=== PATIENT | female | born 1945 | race Caucasian/White ===

== ENCOUNTER → 2021-04-03 | Outpatient (CLI) | payer MEDICARE, OTHER ==
[2021-04-03 20:18] LABS: International Normalized Ratio 2.5; Prothrombin Time Results 24.7 Sec (9.7-11.5)
== END | disposition home or self-care (01) ==
LOC: LAB SHORT 19:06
PROVIDERS: Family Medicine
DX: I82.591 Chronic embolism and thrombosis of other specified deep vein of right lower extremity (principal)
CPT/HCPCS: 85610

== ENCOUNTER 2023-04-25 09:51 | Emergency (ER) | payer OTHER, MEDICARE ==
[~2023-04-25] VITALS: Ht 170.2 cm; Wt 67.1 kg
[2023-04-25] MEDS ORDERED: VALA500 PO (10:17)
[2023-04-25] MEDS ORDERED: B12-FOLIC ACID1 EACH PO (10:17)
[2023-04-25] MEDS ORDERED: ELIQUIS2.5 MG PO (10:17)
[2023-04-25] MEDS ORDERED: METO25ER PO (10:18)
[2023-04-25 12:21] VITALS: BP 112/68
== END 2023-04-25 12:20 | disposition home or self-care (01) ==
LOC: ER 09:51
DX: S39.012A Strain of muscle, fascia and tendon of lower back, initial encounter (principal); S00.83XA Contusion of other part of head, initial encounter; I48.91 Unspecified atrial fibrillation; J44.9 Chronic obstructive pulmonary disease, unspecified; G43.909 Migraine, unspecified, not intractable, without status migrainosus; Z79.01 Long term (current) use of anticoagulants; Z79.899 Other long term (current) drug therapy; Z88.0 Allergy status to penicillin; Z88.1 Allergy status to other antibiotic agents; Z88.2 Allergy status to sulfonamides; Z88.5 Allergy status to narcotic agent; Z88.8 Allergy status to other drugs, medicaments and biological substances; Z91.012 Allergy to eggs; Z91.030 Bee allergy status; Z91.013 Allergy to seafood; W01.190A Fall on same level from slipping, tripping and stumbling with subsequent striking against furniture, initial encounter; Y92.009 Unspecified place in unspecified non-institutional (private) residence as the place of occurrence of the external cause; Y93.01 Activity, walking, marching and hiking
CPT/HCPCS: 70450; 99283-25